=== PATIENT | male | born 1955 | race Caucasian/White ===

== ENCOUNTER 2016-08-08 19:40 | Emergency (ER) | payer OTHER ==
[2016-08-08] MEDS ORDERED: OCTREOTIDE ACETATE 50 MCG in SODIUM CHLORIDE 0.9% 100ML 100 ML IVPB ONE (20:03)
[2016-08-08] MEDS ORDERED: OCTREOTIDE ACETATE 500 MCG in SODIUM CHLORIDE 0.9% 100ML 100 ML IVPB ONE (20:05)
[2016-08-08] MEDS ORDERED: SODIUM CHLORIDE 0.9% 1000ML 1,000 ML IVS ONE ×2 (20:08→21:04)
[2016-08-08] MEDS ORDERED: PANTOPRAZOLE SODIUM IV 40 MG VIAL IV ONE (20:08)
[2016-08-08] MEDS ORDERED: SODIUM CHLORIDE 0.9% 100ML 100 ML IVPB ONE ×2 (20:09→20:17)
[2016-08-08] MEDS ORDERED: OCTREOTIDE ACETATE 100 MCG/ML VIAL ONE ×2 (20:18→21:30)
[2016-08-08] MEDS ORDERED: cefTRIAXone SODIUM 1 GM in SODIUM CHL 0.9% 50ML MIN-BAG+ 50 ML IVPB ONE (20:23)
[2016-08-08] MEDS ORDERED: SODIUM CHLORIDE 0.9% 500ML 500 ML ONE (20:30)
[2016-08-08] MEDS ORDERED: SODIUM CHLORIDE 0.9% 10 ML VIAL ONE (20:38)
--- NOTE | 2016-08-08 21:25 | ED.PDOC ---
History of Present Illness - General Chief Complaint: GI Problem Stated Complaint: rectal bleeding Time Seen by Provider: 08/08/16 19:59 Source: patient Exam Limitations: no limitations - History of Present Illness Initial Comments: 61 yo M with CAD on Brilinta, duodenal ulcers with previous bleed requiring transfusion in 2010, and NIDDM who presents with sudden onset of hematochezia. He passed a large amount of dark red blood per rectum just before presentation. He has had no abdominal pain. He has no other complaints and says that he is sure that he has not had any bleeding recently before today. No dyspnea nor chest pain. Timing/Duration: 4-6 hours Severity: severe Improving Factors: nothing Worsening Factors: nothing Associated Symptoms: denies symptoms Allergies/Adverse Reactions: Allergies Codeine Allergy (Verified 06/19/16 13:49) Home Medications: Ambulatory Orders Atorvastatin Calcium [Lipitor] 20 mg PO 08/08/16 Carvedilol 3.125 mg PO 08/08/16 Metformin HCl 500 mg PO 08/08/16 Ticagrelor [Brilinta] 90 mg PO 08/08/16 Review of Systems - Review of Systems Constitutional: States: no symptoms reported EENTM: States: no symptoms reported Respiratory: States: no symptoms reported Cardiology: States: no symptoms reported Gastrointestinal/Abdominal: States: see HPI Genitourinary: States: no symptoms reported Musculoskeletal: States: no symptoms reported Skin: States: no symptoms reported Neurological: States: no symptoms reported Endocrine: States: no symptoms reported Hematologic/Lymphatic: States: see HPI Past Medical History (General) - Patient Medical History Hx Stroke: No Hx of COPD: Yes Hx Cardiac Disorders: Yes - [place] in May, 2016 Hx Congestive Heart Failure: No Hx Hypertension: Yes Hx Diabetes: Yes Hx Hepatitis C: Yes Hx MRSA: No - Vaccination History Hx Tetanus, Diphtheria Vaccination: Yes Hx Influenza Vaccination: No Hx Pneumococcal Vaccination: Yes - Social History Hx Tobacco Use: Yes Hx Chewing Tobacco Use: No Hx Alcohol Use: Yes - socially Hx Substance Use: No Hx Substance Use Treatment: No Hx Depression: No Hx Physical Abuse: No Hx Emotional Abuse: No Hx Suspected Abuse: No Family Medical History - Family History Mother Family History: No Known Physical Exam - Physical Exam General Appearance: Alert Ears, Nose, Throat: normal ENT inspection Neck: non-tender, full range of motion, supple Respiratory: lungs clear Cardiovascular/Chest: regular rate, rhythm Gastrointestinal/Abdominal: normal bowel sounds, non tender, soft Rectal Exam: other - dark blood at anus and in toilet Extremity: normal inspection Neurologic: no motor/sensory deficits Skin Exam: normal color Lymphatic: no adenopathy Progress - Progress Progress: 08/08/16 21:26 Initial SBP in the low 90s. Patient started on NS one liter IV bolus and one unit of PRBCs as well as octreotide 50 mcg bolus then 50 mcg per hour. Protonix 80 mg IV x one. Second liter of NS started and oxygen by [place]. Patient transferred to [facility] for higher level of care. Laboratory Tests 08/08/16 20:15 WBC 10.2 RBC 4.45 L Hgb 13.6 L Hct 41.4 L MCV 93.0 MCH 30.5 MCHC 32.8 L RDW 14.1 Plt Count 152 MPV 8.7 Absolute Neuts (auto) 8.60 H Absolute Lymphs (auto) 1.20 Absolute Monos (auto) 0.40 Absolute Eos (auto) 0.00 Absolute Basos (auto) 0.00 Neutrophils % 84.0 H Lymphocytes % 11.5 L Monocytes % 3.9 Eosinophils % 0.3 L Basophils % 0.3 PT 12.9 H INR 1.140 PTT (SP) 26.2 Sodium 136 Potassium 5.2 H Chloride 103 Carbon Dioxide 27 Anion Gap 11.2 L BUN 57 H Creatinine 1.24 BUN/Creatinine Ratio 46.0 H Random Glucose 318 H Serum Osmolality 300.0 H Calcium 8.9 Total Bilirubin 0.7 AST 18 ALT 20 Alkaline Phosphatase 55 Serum Total Protein 6.4 Albumin 3.7 Globulin 2.7 Albumin/Globulin Ratio 1.4 Departure - Departure Clinical Impression: Upper gastrointestinal hemorrhage Disposition: Transfer to Hospital Condition: Serious Departure Forms: ED Discharge - Pt. Copy, Patient Portal Self Enrollment Diet: other - NPO Home Medications: Ambulatory Orders Atorvastatin Calcium [Lipitor] 20 mg PO 08/08/16 Carvedilol 3.125 mg PO 08/08/16 Metformin HCl 500 mg PO 08/08/16 Ticagrelor [Brilinta] 90 mg PO 08/08/16
[2016-08-08] MEDS ORDERED: VASOPRESSIN 20 UNITS/ML 1 ML VIAL IVPB ONE (21:37)
[2016-08-08 22:54] VITALS: BP 110/76
[2016-08-08 23:38] VITALS: TEMP 97.9; O2SAT 100
== END 2016-08-08 21:55 | disposition short-term general hospital (02) ==
LOC: ER 19:40
DX: K92.2 Gastrointestinal hemorrhage, unspecified (principal); J44.9 Chronic obstructive pulmonary disease, unspecified; I25.2 Old myocardial infarction; I10 Essential (primary) hypertension; Z87.891 Personal history of nicotine dependence; E11.9 Type 2 diabetes mellitus without complications; Z86.19 Personal history of other infectious and parasitic diseases; Z88.6 Allergy status to analgesic agent; Z79.899 Other long term (current) drug therapy
CPT/HCPCS: 36415; 80053; 85025; 85610; 85730; 86850; 86900; 86901; 86922; J2354; J7030; J7040; J7050; P9016

== ENCOUNTER → 2016-10-13 | Outpatient (CLI) | payer OTHER | LOC: GMAM 11:09 | PROVIDERS: ATTEND Family Medicine | DX: Z12.5 Encounter for screening for malignant neoplasm of prostate (principal) ==

== ENCOUNTER → 2017-01-05 | Outpatient (CLI) | payer OTHER ==
--- NOTE | 2017-01-05 16:12 | CT ---
EXAM DESCRIPTION: Abdomen/Pelvis w/wo Contrast CLINICAL HISTORY: 61 years,Male,MICROHEMATURIA COMPARISON: September 10, 2010 TECHNIQUE: Multiple axial tomographic images were obtained of the abdomen and pelvis with and without IV contrast and oral contrast. Then reconstructed in sagittal and coronal planes. This exam was performed using radiation doses that are As Low As Reasonably Achievable (ALARA). FINDINGS: The kidneys are unremarkable The adrenal glands are unremarkable. The spleen is unremarkable. The liver is unremarkable. The pancrease is unremarkable. The gallbladder is unremarkable. The included bowel is unremarkable. The appendix is not seen. There is no free air, free fluid, masses, or significant adenopathy. Surrounding soft tissues and bony elements unremarkable. Heavily calcified atherosclerotic vascular) with severe disease in the iliac vessels. IMPRESSION: Severe atherosclerotic vascular disease especially iliacs with probable significant stenoses. Electronically signed by: Herrera Moreno MD 01/05/2017 4:10 PM CDT
== END ==
LOC: LAB.O 08:32
PROVIDERS: ATTEND Urology
DX: R31.29 Other microscopic hematuria (principal); I70.8 Atherosclerosis of other arteries

== ENCOUNTER → 2017-04-13 | Outpatient (CLI) | payer OTHER | END | disposition home or self-care (01) | LOC: GMAM 15:34 | PROVIDERS: ATTEND Family Medicine | DX: E83.51 Hypocalcemia (principal) ==

== ENCOUNTER → 2018-11-16 | Outpatient (CLI) | payer OTHER ==
--- NOTE | 2018-11-17 10:35 | CT ---
Procedure: CT LUNG SCREENING Exam Date: 11/16/2018 Ordering Provider: Ariel De Anda. PCP: Dr. Kelsey Lopez. Clinical Indication: HISTORY OF TOBACCO USE. Current cigarette smoker. 68 pack years. This patient meets eligibility criteria for low-dose CT lung cancer screening. Comparison: CT scan of the abdomen 01/05/2017. Technique: Using a multislice scanner, sequential helical axial imaging was obtained in the thorax, 2.5 mm thickness, 2.5 mm separation, from the level of the thoracic inlet through the lung bases without IV contrast. A low dose protocol was utilized for BMI less than 30: BMI: 24.4. CTDI: 1.76 mGy. 120. kVp. 45 mA. DLP: 75.5 mGy centimeters. 2D sagittal and coronal reconstructed images, 6.0 mm thickness, were obtained. This exam was performed according to our departmental dose optimization program which includes use of automated exposure control, adjustment of the mA and/or kV according to patient size and/or use of iterative reconstruction technique. Nodule measurements under 10 mm are given as mean value of 3 axes diameters. FINDINGS: Lungs and large airways: Bilateral small blebs in a centrilobular pattern more prevalent in the upper lobes. 2 mm nodule subpleural lateral right lung apex on axial series 2, image 30 (2/30). No larger nodules or masses. No focal infiltrates. Minimal perihilar peribronchial wall cuffing.. Pleura and space: Large or blebs abutting the apical pleura bilaterally. Bilateral focal pleural thickening. No effusion or pneumothorax. Mediastinum and miguel angel: evaluation limited by low dose technique and lack of IV contrast. Small mediastinal nodes not overly enlarged. No soft tissue masses. Heart and great vessels: Coronary artery stents and calcifications. Atherosclerotic calcification and some of the included brachiocephalic vessels, aortic arch, and descending thoracic aorta. Chest wall, lower neck, axillae: Evaluation also limited by same factors as described above. No enlarged lymph nodes. Thyroid gland negative for nodules. Upper abdomen: Included peritoneal space with no fatty stranding free fluid or free air. Included abdominal organs normal density. Abdominal atherosclerotic calcifications including some of the major branch vessels. Osseous structures: Evaluation limited by low dose MIP technique. Minimal spondylosis in the thoracic spine. Schmorl's node versus mild compression injury of the superior T12 endplate. Mild arthrosis right sternoclavicular joint. No lytic or blastic lesions. IMPRESSION: 2 mm subpleural nodule lateral right lung apex. No larger nodules or masses. No focal infiltrate.. [facility] Best Practice recommendations: Please see below for Lung RADS category and FOLLOW-UP.* *Lung RADS category CATEGORY 2- Nodules with a very low likelihood (less than 1%) of becoming a clinically active cancer due to size or lack of growth. Nodules: Solid or part solid nodule(s) less than 6mm, new solid nodule less than 4mm. Ground glass nodule(s) less than 20mm or unchanged or slow growing ground glass nodule 20mm or greater. Cat 3 or 4 nodule unchanged for 3 or more months. FOLLOW-UP: Continue annual screening with a Low Dose Chest CT in 12 months for re-evaluation. Electronically signed by: Reji Cornejo MD 11/17/2018 10:33 AM CDT
== END ==
LOC: CT 14:30
PROVIDERS: ATTEND Family Medicine
DX: Z87.891 Personal history of nicotine dependence (principal); R91.1 Solitary pulmonary nodule

== ENCOUNTER → 2019-08-09 | Outpatient (CLI) | payer OTHER ==
--- NOTE | 2019-08-09 13:20 | CT ---
EXAM DESCRIPTION: CTA Runoff CLINICAL HISTORY: 64 years Male, CYANOSIS WITH ATTENTION TO L GREAT TOE COMPARISON: None. TECHNIQUE: Angiographic phase multidetector CT imaging of the abdominal aorta with lower extremity runoff. Multiplanar reconstructions were generated. Surface rendered 3-D images of the vasculature. This exam was performed according to our departmental dose-optimization program which includes automated exposure control, adjustment of the mA and/or kV according to patient size and/or use of iterative reconstruction technique. FINDINGS: Study quality: Satisfactory. Mild to moderate burden of calcified and noncalcified plaque is demonstrated throughout the abdominal aorta. Celiac axis is patent. Mild atherosclerotic narrowing origin superior mesenteric artery. Single left L3 vertebral arteries appear patent. Inferior mesenteric artery is patent. Ectasia of the abdominal aorta is present. There is fusiform dilatation of the mid to upper abdominal aorta measuring up to 2.9 cm perpendicular to the long axis. Left side: A patent stent is present within the otherwise patent left common iliac artery. Diffuse up to 50% stenosis is present of the left external iliac artery. The profunda femoris is patent. Multifocal disease greater than 50% is noted throughout the left superficial femoral artery. The popliteal artery is patent. The trifurcation vessels enhance to the level of the ankle. Vascular detail below the level of the ankle is not demonstrated with this modality. Right side: A focal 50% 1 cm segment area of narrowing is present within the more distal right common iliac artery just before the bifurcation. Severe narrowing origin right internal iliac artery. Mild narrowing of the right external iliac artery from moderate burden of calcified and noncalcified atheromatous plaque. Focal 50% narrowing at the origin of the right superficial femoral artery for a 0.5 cm in length. The profunda femoris is patent. Several foci of approximately 50% stenosis noted throughout the superficial femoral artery. The popliteal artery is patent. Positive runoff is noted to the level of the ankle. Other: Numerous diverticula distal colon. No acute diverticulitis. No other significant interval change from comparison CT January 05, 2017. IMPRESSION: Study history of attention to the left great toe. The structure is beyond the resolution of CT angiography. Conventional angiogram may be needed for arterial evaluation of this structure. Fusiform infrarenal abdominal aortic aneurysm 2.9 cm. Follow-up every 5 years. Patent left common iliac stent. Multifocal approximate 50% stenoses present throughout the left external iliac, left superficial femoral, right common iliac, and right superficial femoral arteries. Extensive distal colonic diverticulosis. No acute diverticulitis. Electronically signed by: Edin Armas MD 08/09/2019 1:18 PM [employer]PA[employer] PERSON
== END ==
LOC: CT 09:34
PROVIDERS: ATTEND Family Medicine
DX: I70.202 Unspecified atherosclerosis of native arteries of extremities, left leg (principal); K57.30 Diverticulosis of large intestine without perforation or abscess without bleeding; I71.4 Abdominal aortic aneurysm, without rupture; Z95.828 Presence of other vascular implants and grafts

== ENCOUNTER 2020-07-28 11:15 | Emergency (ER) | payer BC, MEDICARE ==
[2020-07-28] MEDS ORDERED: SODIUM CHLORIDE 0.9% (FLUSH) 10 ML SYG IV PRN (11:28)
[2020-07-28] MEDS ORDERED: NITROGLYCERIN 2% 1 GM UD TOP ONE (11:36)
--- NOTE | 2020-07-28 11:40 | ED.PDOC ---
History of Present Illness - General Chief Complaint: Cardiovascular Problem Stated Complaint: Chest tightness, left arm numbness Time Seen by Provider: 07/28/20 11:27 Source: patient, RN notes reviewed, Vital Signs reviewed Exam Limitations: no limitations - History of Present Illness Initial Comments: Patient is a 65-year-old white male who presents with complaints of chest t ightness and left arm tingling. This started approximately 4 days ago. It is increasing in frequency and intensity. The pain is tight in nature. It is mild in intensity. It radiates to his left arm. Is located left of center of his chest. There is similar to the pain he had previously when he needed a stent. There is shortness of breath with the chest pain. Patient denies any diaphoresis or nausea. Rest helps reduce the frequency of pain. It is worse when he is smoking a lot or exerts himself. Timing/Duration: 1 week Severity/Quality: mild, pressure, tightness Location: substernal Chest Pain Radiation: arms - left Activities at Onset: activity Prior Chest Pain/Cardiac Workup: cardiac cath, heart attack Improving Factors: rest Worsening Factors: movement Nitro Today/Relief: no nitro taken today Aspirin Treatment Today: no aspirin today Associated Symptoms: fatigue, shortness of breath Allergies/Adverse Reactions: Allergies Codeine Allergy (Verified 07/28/20 11:45) Home Medications: Ambulatory Orders Atorvastatin Calcium [Lipitor] 20 mg PO 08/08/16 Carvedilol 3.125 mg PO 08/08/16 Metformin HCl [Metformin Hydrochloride] 500 mg PO 08/08/16 Ticagrelor [Brilinta] 90 mg PO 08/08/16 Review of Systems - Review of Systems Constitutional: States: no symptoms reported, see HPI. Denies: chills, fever, malaise, weakness EENTM: States: no symptoms reported. Denies: eye pain, blurred vision, double vision Respiratory: States: see HPI, short of breath. Denies: cough, stridor, wheezing Cardiology: States: see HPI, chest pain. Denies: palpitations, syncope Gastrointestinal/Abdominal: States: no symptoms reported. Denies: abdominal pain, diarrhea, nausea, vomiting Genitourinary: States: no symptoms reported. Denies: dysuria, frequency Musculoskeletal: States: no symptoms reported. Denies: back pain, joint pain, neck pain Skin: States: no symptoms reported. Denies: change in color, rash Neurological: States: no symptoms reported. Denies: headache, tingling, tremors, weakness Endocrine: States: no symptoms reported. Denies: increased hunger, increased thirst, increased urine Hematologic/Lymphatic: States: no symptoms reported. Denies: blood clots, easy bleeding Past Medical History (General) - Patient Medical History Hx Stroke: No Hx of COPD: Yes Hx Cardiac Disorders: Yes - [place] in May, 2016 Hx Congestive Heart Failure: No Hx Hypertension: Yes Hx Diabetes: Yes Hx Hepatitis C: Yes Hx MRSA: No - Vaccination History Hx Tetanus, Diphtheria Vaccination: Yes Hx Influenza Vaccination: No Hx Pneumococcal Vaccination: Yes - Social History Hx Tobacco Use: Yes Hx Chewing Tobacco Use: No Hx Alcohol Use: Yes - socially Hx Substance Use: No Hx Substance Use Treatment: No Hx Depression: No Hx Physical Abuse: No Hx Emotional Abuse: No Hx Suspected Abuse: No Family Medical History - Family History Mother Family History: No Known Physical Exam - Physical Exam General Appearance: Alert, Anxious, Unkempt, Well Developed, Well Hydrated, Well Nourished, Other - Pt smells of cigarette smoke and etoh. 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 07/28/20 14:12 Patient's chest pain was completely relieved with the nitroglycerin. I have offered transfer to [place] for further evaluation. [facility] is w here his integrity engineer practice. He has not seen his integrity engineer in over a year. Patient refuses admission or transfer and instead wants to sign out AMA. He said he may go over there later or just wait till Tuesday for his cardiology appointment. I discussed the risks and benefits of such course of action and patient insists on leaving AMA. Giuliano Wood M.D. #[id number] - Results/Orders Results/Orders: EKG performed 28 July 2020 at 1125 hrs.: Normal sinus rhythm at 80 bpm, left axis deviation, nonspecific ST and T wave changes, abnormal EKG. No comparison EKG available at this time. EXAM DESCRIPTION: Chest,1 View CLINICAL HISTORY: 65 years Male, chest pain COMPARISON: June 19, 2016 TECHNIQUE: AP portable chest. FINDINGS: Fair expansion of the lungs is evident without consolidation, layering effusion, or large mass. Heart size and vascularity appear normal for AP technique and degree of inspiration. No gross bony, hilar, or mediastinal abnormalities are noted. IMPRESSION: Normal chest, one view Electronically signed by: Cj Mosley MD 07/28/2020 11:59 AM 07/28/20 11:28 Sodium Chloride 0.9% (Flush) [Saline Flush Syringe] 3 ml IV PRN PRN 07/28/20 11:30 EKG STAT 07/29/20 09:00 Pulse Ox Daily Laboratory Results - last 24 hr 07/28/20 07/28/20 11:45 11:45 WBC 7.0 RBC 5.40 Hgb 16.9 Hct 49.5 MCV 91.8 MCH 31.3 H MCHC 34.1 RDW 13.6 Plt Count 134 MPV 8.6 Absolute Neuts (auto) 5.40 Absolute Lymphs (auto) 1.00 Absolute Monos (auto) 0.40 Absolute Eos (auto) 0.10 Absolute Basos (auto) 0.10 Neutrophils % 77.9 Lymphocytes % 14.0 L Monocytes % 6.3 Eosinophils % 1.1 Basophils % 0.7 PT 10.5 INR 1.06 PTT (SP) 25.4 Sodium 137 Potassium 4.0 Chloride 101 Carbon Dioxide 27 Anion Gap 13.0 BUN 13 Creatinine 0.84 BUN/Creatinine Ratio 15.5 Random Glucose 159 H Serum Osmolality 277.3 Calcium 8.8 Magnesium 1.9 Creatine Kinase 78 CK-MB (CK-2) 2.9 CK-MB (CK-2) % Not Reportable Troponin I < 0.02 B-Natriuretic Peptide 173.0 H Vital Signs 07/28/20 07/28/20 11:35 13:00 Temperature 97.7 F Pulse Rate [ 88 Right Radial] Respiratory 20 20 Rate Blood Pressure 224/114 165/95 [Left Arm] O2 Sat by Pulse 99 96 Oximetry Departure - Departure Clinical Impression: Unstable angina Chest pain Qualifiers: Chest pain type: unspecified Qualified Code(s): R07.9 - Chest pain, unspecified Time of Disposition: 14:14 Disposition: Left Against Medical Advice Condition: Fair Departure Forms: ED Discharge - Pt. Copy, Patient Portal Self Enrollment Instructions: DI for Chest Pain, Angina (DC) Diet: low fat, low cholesterol Activity: no exercise Referrals: Cj Lopez MD [Primary Care Provider] - 1-2 Days Home Medications: Ambulatory Orders Atorvastatin Calcium [Lipitor] 20 mg PO 08/08/16 Carvedilol 3.125 mg PO 08/08/16 Metformin HCl [Metformin Hydrochloride] 500 mg PO 08/08/16 Ticagrelor [Brilinta] 90 mg PO 08/08/16
--- NOTE | 2020-07-28 12:01 | RAD ---
EXAM DESCRIPTION: Chest,1 View CLINICAL HISTORY: 65 years Male, chest pain COMPARISON: June 19, 2016 TECHNIQUE: AP portable chest. FINDINGS: Fair expansion of the lungs is evident without consolidation, layering effusion, or large mass. Heart size and vascularity appear normal for AP technique and degree of inspiration. No gross bony, hilar, or mediastinal abnormalities are noted. IMPRESSION: Normal chest, one view Electronically signed by: Cj Mosley MD 07/28/2020 11:59 AM [employer] SH[employer]AGE AND [employer] CLERK
[2020-07-28 15:03] VITALS: BP 154/79; TEMP 97.9; O2SAT 98
== END 2020-07-28 14:20 | disposition left against medical advice (07) ==
LOC: ER 11:15
DX: I20.0 Unstable angina (principal); I25.2 Old myocardial infarction; J44.9 Chronic obstructive pulmonary disease, unspecified; I10 Essential (primary) hypertension; E11.9 Type 2 diabetes mellitus without complications; F17.200 Nicotine dependence, unspecified, uncomplicated; Z53.29 Procedure and treatment not carried out because of patient's decision for other reasons; Z86.19 Personal history of other infectious and parasitic diseases; Z79.84 Long term (current) use of oral hypoglycemic drugs; Z79.899 Other long term (current) drug therapy; Z88.5 Allergy status to narcotic agent